=== PATIENT | male | born 1970 | race Caucasian/White ===

== ENCOUNTER 2016-12-31 18:51 | Inpatient (IN) | payer OTHER ==
[~2016-12-31] VITALS: Ht 167.6 cm; Wt 107.4 kg
[2016-12-31] MEDS ORDERED: SODIUM CHLORIDE 0.9% 1000ML 1,000 ML IV STA ×2 (19:51)
[2016-12-31] MEDS ORDERED: GLYB5TAB8 PO (20:17)
[2016-12-31] MEDS ORDERED: CHOL200010 PO (20:17)
[2016-12-31] MEDS ORDERED: METF-384 PO (20:17)
[2016-12-31] MEDS ORDERED: LIRA18IN SQ (20:17)
[2016-12-31] MEDS ORDERED: VALS320T2 PO (20:17)
[2016-12-31] MEDS ORDERED: CYAN10005 PO (20:17)
[2016-12-31] MEDS ORDERED: NVLG SQ (20:17)
[2016-12-31] MEDS ORDERED: NIFE1TAB55 PO (20:17)
[2016-12-31] MEDS ORDERED: INSDGI SC (20:17)
[2016-12-31] MEDS ORDERED: PRLSR20 PO (20:17)
[2016-12-31] MEDS ORDERED: DOXY100C76 PO (20:17)
[2016-12-31 20:33] LABS: HEMATOCRIT 41.2 % (42-52); MEAN CELL VOLUME 83.2 fL (80-100); MEAN CORPUSCULAR HEMOGLOBIN 30.5 pg (25-34); MEAN CORPUSCULAR HGB CONC 36.7 g/dl (32-36); PLATELET COUNT 188 K/uL (130-400); RED BLOOD COUNT 4.95 M/uL (4.7-6.1); WHITE BLOOD COUNT 7.03 K/uL (4.8-10.8)
[2016-12-31 20:53] LABS: ALT/SGPT 150 U/L (12-78); AST/SGOT 44 U/L (15-37); BLOOD UREA NITROGEN 67 mg/dl (7-18); BUN/CREATININE RATIO 33.7 (10-20); CALCIUM 8.3 mg/dl (8.5-10.1); CARBON DIOXIDE 24 mmol/L (21-32); CHLORIDE 108 mmol/L (98-107); GLUCOSE 156 mg/dl (70-99); POTASSIUM 3.3 mmol/L (3.5-5.1); SODIUM 140 mmol/L (136-145)
[2016-12-31 20:56] LABS: ALKALINE PHOSPHATASE 73 U/L (45-117)
--- NOTE | 2016-12-31 20:57 | DIAGNOSTIC IMAGING REPORT ---
CT OF THE ABDOMEN AND PELVIS WITHOUT CONTRAST, STONE PROTOCOL CLINICAL HISTORY: Acute kidney injury. Left flank pain. COMPARISON STUDY: Right upper quadrant ultrasound February 23, 2015. TECHNIQUE: Helical axial images of the abdomen and pelvis were obtained without IV or oral contrast according to renal stone protocol. FINDINGS: Borderline cardiomegaly is noted. There is fatty infiltration of the liver. Unenhanced images of the spleen, right adrenal gland and pancreas are unremarkable. A low-attenuation 1 cm left adrenal nodule likely reflects an adenoma. Note is made of a 3 mm right renal calculus. There are no ureteral calculi. There is no hydronephrosis. Renal size is normal. There is no evidence for a bowel obstruction. The appendix is normal. There is no lymphadenopathy. A few prominent low-attenuation mesenteric lymph nodes are at the upper limits of normal for size. IMPRESSION: 1. 3 mm right renal calculus. No ureteral calculi or hydronephrosis. 2. Normal appendix. 3. Fatty liver. 4. Borderline cardiomegaly. Electronically signed by: Marky Hou M.D. 12/31/2016 8:56 PM Dictated Date/Time: 12/31/2016 8:50 PM
[2016-12-31 21:08] LABS: BASO ABS # 0.06 K/uL (0-0.2); BASOPHIL % 0.9 % (0-2); COMPLETE YES; LYMPH ABS # 1.91 K/uL (1.2-3.4); LYMPHOCYTE % 27.2 %; NEUTROPHILS % 44.7 %; SMUDGE CELLS PRESENT; VARIANT LYMPHOCYTE % 22.8 %
[2016-12-31 22:06] LABS: URINE APPEARANCE CLEAR (CLEAR); URINE BILIRUBIN NEG (NEG); URINE COLOR YELLOW; URINE NITRITE NEG (NEG); URINE SPECIFIC GRAVITY 1.009 (1.000-1.030); UROBILINOGEN NEG (NEG); ZZUR CULT IF INDIC CLEAN CATCH NO
[2016-12-31 22:09] LABS: MANUAL MICROSCOPIC REQUIRED? NO; REVIEW REQ? NO
[2016-12-31] MEDS ORDERED: ALUMINUM/MAGNESIUM/SIMETH (MAALOX MAX) 30 ML UDC PO PRN (23:30)
[2016-12-31] MEDS ORDERED: ZOLPIDEM TARTRATE 5 MG TAB PO PRN (23:30)
[2016-12-31] MEDS ORDERED: ACETAMINOPHEN 325 MG TAB PO PRN (23:30)
[2016-12-31] MEDS ORDERED: MAGNESIUM HYDROXIDE SUSP 30 ML UDC PO PRN (23:30)
[2016-12-31] MEDS ORDERED: POLYETHYLENE (MIRALAX) 17 GM PACK PO PRN (23:30)
[2016-12-31] MEDS ORDERED: ONDANSETRON INJ 2 MG/ML 2 ML VIAL IV PRN (23:30)
[2017-01-01] VITALS: BP 131/82; PULSE 78; TEMP 36.6; Ht 167.6 cm; Wt 107.4 kg
[2017-01-01 00:01] VITALS: O2SAT 95
--- NOTE | 2017-01-01 00:08 | History and Physical ---
History & Physical Date & Time of Service: Dec 31, 2016 at 23:39 Chief Complaint: Needs Fluids For Kidneys Has Problems Primary Care Physician: RV. Youngblood MD History of Present Illness Source: patient, spouse 46 y/o M Hx HTN, DM. Pt has had a GI illness with nausea, vomiting and diarrhea for 6 days. He has not had recent fevers or rigors. He has had intermittent cramping abdomal pain. His stated that she thought he had yellowing of his skin one day prior. He has a child at home who has had similar symptoms. He presented to his PCP who obtained labs and noted that his creatinine was elevated. He was instructed therefore to attend the hospital. Initial labs are also notable for an elevated lipase and elevated LFTs. 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 - speaks Filipino only Smoking Status: Never Smoker Allergies Coded Allergies: No Known Allergies (Unverified , 12/31/16) Home Medications Scheduled Doxycycline Monohydrate (Monodox), 100 MG PO Q12 Glyburide (Micronase), 10 MG PO BID Liraglutide (Victoza), 1.8 MG SQ DAILY Metformin Hcl (Glucophage), 1,000 MG PO BID Nifedipine (Nifedipine Er), 1 TAB PO DAILY Omeprazole (Prilosec), 20 MG PO DAILY Valsartan/Hctz (Diovan Hct 320MG/25MG), 1 TAB PO DAILY Review of Systems Constitutional: No chills, No fever, No sweats Eyes: No eye pain, No worsening of vision ENT: No hearing loss, No nasal symptoms, No unusual epistaxis Respiratory: No cough, No sputum, No wheezing Cardiovascular: No PND, No chest pain, No orthopnea Abdomen: + diarrhea, + nausea, + pain, + vomiting, No GI bleeding Musculoskeletal: No joint pain, No muscle pain Genitourinary - Male: No dysuria, No hematuria, No urinary frequency Neurologic: No memory loss, No paralysis, No weakness Psychiatric: No anhedonism, No depression symptoms Endocrine: + fatigue Hematologic / Lymphatic: No abnormal bleeding/bruising Integumentary: No rash Allergic / Immunologic: No environmental allergies Physical Exam Vital Signs Date Time Temp Pulse Resp B/P Pulse Ox O2 Delivery O2 Flow Rate FiO2 12/31/16 23:00 81 12/31/16 22:57 76 13 122/76 94 Room Air 12/31/16 20:34 78 20 127/77 98 Room Air 12/31/16 18:59 36.6 78 18 127/81 93 Room Air General Appearance: WD/WN, no apparent distress Head: normocephalic, atraumatic Eyes: normal inspection, PERRL, EOMI ENT: normal ENT inspection, hearing grossly normal, TMs normal, pharynx normal Neck: supple, no JVD Respiratory/Chest: chest non-tender, lungs clear, normal breath sounds, no respiratory distress, no accessory muscle use Cardiovascular: regular rate, rhythm, no edema, no gallop Abdomen/GI: normal bowel sounds, soft, + tenderness (Mild L sided abdominal tenderness to palpation) Back: normal inspection, no CVA tenderness Extremities/Musculoskelatal: normal inspection, no calf tenderness, normal capillary refill, no pedal edema, normal range of motion 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, no motor/sensory deficits, alert, normal mood/affect, normal reflexes, oriented x 3 Skin: normal color, warm/dry, no rash Diagnostics Laboratory Results Results Past 24 Hours Test 12/31/16 20:15 12/31/16 21:50 12/31/16 23:28 Range/Units White Blood Count 7.03 4.8-10.8 K/uL Red Blood Count 4.95 4.7-6.1 M/uL Hemoglobin 15.1 14.0-18.0 g/dL Hematocrit 41.2 42-52 % Mean Corpuscular Volume 83.2 80-100 fL Mean Corpuscular Hemoglobin 30.5 25-34 pg Mean Corpuscular Hemoglobin Concent 36.7 32-36 g/dl Platelet Count 188 130-400 K/uL Mean Platelet Volume 10.0 7.4-10.4 fL RDW Standard Deviation 37.2 36.4-46.3 fL RDW Coefficient of Variation 12.3 11.5-14.5 % Neutrophils % (Manual) 44.7 % Lymphocytes % (Manual) 27.2 % Variant Lymphocytes % (manual) 22.8 % Monocytes % (Manual) 4.4 % Basophils % (Manual) 0.9 0-2 % Neutrophils # (Manual) 3.14 1.4-6.5 K/uL Total Absolute Neutrophils 3.14 1.4-6.5 K/uL Lymphocytes # (Manual) 1.91 1.2-3.4 K/uL Absolute Variant Lymphocytes 1.60 K/uL Total Absolute Lymphocytes 3.52 1.2-3.4 K/uL Monocytes # (Manual) 0.31 0.11-0.59 K/uL Basophils # (Manual) 0.06 0-0.2 K/uL Smudge Cells PRESENT Sodium Level 140 136-145 mmol/L Potassium Level 3.3 3.5-5.1 mmol/L Chloride Level 108 98-107 mmol/L Carbon Dioxide Level 24 21-32 mmol/L Anion Gap 8.0 3-11 mmol/L Blood Urea Nitrogen 67 7-18 mg/dl Creatinine 2.00 0.60-1.40 mg/dl Est Creatinine Clear Calc Drug Dose 52.8 ml/min Estimated GFR () 44.4 Estimated GFR (Non- 38.3 BUN/Creatinine Ratio 33.7 10-20 Random Glucose 156 70-99 mg/dl Calcium Level 8.3 8.5-10.1 mg/dl Total Bilirubin 0.4 0.2-1 mg/dl Direct Bilirubin < 0.1 0-0.2 mg/dl Aspartate Amino Transf (AST/SGOT) 44 15-37 U/L Alanine Aminotransferase (ALT/SGPT) 150 12-78 U/L Alkaline Phosphatase 73 45-117 U/L Total Protein 7.6 6.4-8.2 gm/dl Albumin 3.4 3.4-5.0 gm/dl Lipase 898 73-393 U/L Urine Color YELLOW Urine Appearance CLEAR CLEAR Urine pH 5.0 4.5-7.5 Urine Specific [place] 1.009 1.000-1.030 Urine Protein NEG NEG Urine Glucose (UA) NEG NEG Urine Ketones NEG NEG Urine Occult Blood NEG NEG Urine Nitrite NEG NEG Urine Bilirubin NEG NEG Urine Urobilinogen NEG NEG Urine Leukocyte Esterase NEG NEG Diagnostic Radiology .CT abdomen 1. 3 mm right renal calculus. No ureteral calculi or hydronephrosis. 2. Normal appendix. 3. Fatty liver. Impression Assessment and Plan 46 y/o M Hx HTN, DM. Pt has had a GI illness with nausea, vomiting and diarrhea for 6 days. He has not had recent fevers or rigors. He has had intermittent cramping abdomal pain. His stated that she thought he had yellowing of his skin one day prior. He has a child at home who has had similar symptoms. He presented to his PCP who obtained labs and noted that his creatinine was elevated. He was instructed therefore to attend the hospital. Initial labs are also notable for an elevated lipase and elevated LFTs. 1) N/V/D - will obtain stool culture as illness has persisted for 6 days - IVF and antiemetics provided 2) ARF - likely prerenal due to above - IVF - recheck labs AM 3) Elevated lipase - no clinical evidence of pancreatitis - likely due to vomiting 4) LFT elevation - unclear if this is chronic or due to fatty liver (seen on CT ) or acute - will test for hep A - repeat AM - consult GI if increasing 5) DM - placed on SS 6) HTN - Nifedipine continued - diuretics and ALYSHA held due to ARF Full code - Heparin prophylaxis Total time for this admit including review of labs, records, imaging - discussion with pt/ and ER attending - 31 min Level of Care Med/Surg Resuscitation Status FULL RESUSCITATION VTE Prophylaxis VTE Risk Assessment Done? Y/N: Yes Risk Level: Low Given or contraindicated: Unfractionated heparin SQ
[2017-01-01] MEDS ORDERED: MoRPHine SULFATE 2 MG/ML CARP IV PRN (00:15)
[2017-01-01] MEDS: NSS + 20MEQ KCL 1000ML 1,000 ML IV SCH ×5 (00:40→23:52)
--- NOTE | 2017-01-01 01:37 | EMERGENCY ROOM VISIT NOTE ---
History Report prepared by Cory: Niranjan Nair Under the Supervision of: Dr. Beto Edge M.D. First contact with patient: 19:50 Chief Complaint: OTHER COMPLAINT Stated Complaint: NEEDS FLUIDS FOR KIDNEYS HAS PROBLEMS History of Present Illness The patient is a 46 year old male who presents to the Emergency Room with complaints of abnormal labs occurring earlier today. The patient's states that he was at his PCP, and his kidney function was low. The states that the patient had Lyme's disease 6 months ago, and he was given antibiotics for three weeks during the summer. The patient additionally states that he is diabetic and hypertensive. The states that he had a fever, and he was nauseous, vomiting, diarrhea, and abdominal pain. She additionally states that he has lost 10 pounds in the past few days and he intermittently looks a little yellow. The additionally states that his blood sugar has been going up and down a lot recently. The states that the patient's son was sick recently with similar symptoms. Pt denies LOC, headache, chills, diaphoresis, visual changes, neck pain, chest pain, breathing difficulties, back pain, melena, hematochezia, urinary symptoms, numbness, weakness, lymphadenopathy, rash, or other complaints. Source of History: patient, spouse/significant other Onset: earlier today Position: other (global) Quality: other (abnormal labs) Associated Symptoms: + abdominal pain, + diarrhea, + fevers, + nausea, + vomiting Review of Systems See HPI for pertinent positives and negatives. A total of ten systems were reviewed and were otherwise negative. Past Medical & Surgical Medical Problems: (1) ARF (acute renal failure) (2) Diabetes (3) Hypertension (4) Transaminitis Family History Diabetes mellitus Hypertension Social History Smoking Status: Never Smoker Marital Status: Housing Status: lives with family Occupation Status: employed Current/Historical Medications Scheduled Doxycycline Monohydrate (Monodox), 100 MG PO Q12 Glyburide (Micronase), 10 MG PO BID Liraglutide (Victoza), 1.8 MG SQ DAILY Metformin Hcl (Glucophage), 1,000 MG PO BID Nifedipine (Nifedipine Er), 1 TAB PO DAILY Omeprazole (Prilosec), 20 MG PO DAILY Valsartan/Hctz (Diovan Hct 320MG/25MG), 1 TAB PO DAILY Allergies Coded Allergies: No Known Allergies (Unverified , 12/31/16) Physical Exam Vital Signs Date Time Temp Pulse Resp B/P Pulse Ox O2 Delivery O2 Flow Rate FiO2 12/31/16 23:00 81 12/31/16 22:57 76 13 122/76 94 Room Air 12/31/16 20:34 78 20 127/77 98 Room Air 12/31/16 18:59 36.6 78 18 127/81 93 Room Air Physical Exam GENERAL: Awake, alert, well-appearing, in no distress HENT: Normocephalic, atraumatic. Oropharynx unremarkable. EYES: Normal conjunctiva. Sclera non-icteric. NECK: Supple. No nuchal rigidity. FROM. No JVD. RESPIRATORY: Clear to auscultation. CARDIAC: Regular rate, normal rhythm. Extremities warm and well perfused. Pulses equal. ABDOMEN: Soft, non-distended. No tenderness to palpation. No rebound or guarding. No masses. RECTAL: Deferred. MUSCULOSKELETAL: Chest examination reveals no tenderness. The back is symmetrical on inspection without obvious abnormality. There is no CVA tenderness to palpation. No joint edema. LOWER EXTREMITIES: Calves are equal size bilaterally and non-tender. No edema. No discoloration. NEURO: Normal sensorium. No sensory or motor deficits noted. SKIN: No rash or jaundice noted. Medical Decision & Procedures ER Provider Diagnostic Interpretation: Radiology results as stated below per my review and radiologist interpretation CT OF THE ABDOMEN AND PELVIS WITHOUT CONTRAST, STONE PROTOCOL CLINICAL HISTORY: Acute kidney injury. Left flank pain. COMPARISON STUDY: Right upper quadrant ultrasound February 23, 2015. TECHNIQUE: Helical axial images of the abdomen and pelvis were obtained without IV or oral contrast according to renal stone protocol. FINDINGS: Borderline cardiomegaly is noted. There is fatty infiltration of the liver. Unenhanced images of the spleen, right adrenal gland and pancreas are unremarkable. A low-attenuation 1 cm left adrenal nodule likely reflects an adenoma. Note is made of a 3 mm right renal calculus. There are no ureteral calculi. There is no hydronephrosis. Renal size is normal. There is no evidence for a bowel obstruction. The appendix is normal. There is no lymphadenopathy. A few prominent low-attenuation mesenteric lymph nodes are at the upper limits of normal for size. IMPRESSION: 1. 3 mm right renal calculus. No ureteral calculi or hydronephrosis. 2. Normal appendix. 3. Fatty liver. 4. Borderline cardiomegaly. Electronically signed by: Marky Hou M.D. 12/31/2016 8:56 PM Dictated Date/Time: 12/31/2016 8:50 PM Laboratory Results 12/31/16 20:15 Red Blood Count 4.95, Mean Corpuscular Volume 83.2, Mean Corpuscular Hemoglobin 30.5, Mean Corpuscular Hemoglobin Concent 36.7, Mean Platelet Volume 10.0 12/31/16 20:15 Test 12/31/16 20:15 12/31/16 21:50 White Blood Count 7.03 K/uL (4.8-10.8) Red Blood Count 4.95 M/uL (4.7-6.1) Hemoglobin 15.1 g/dL (14.0-18.0) Hematocrit 41.2 % (42-52) Mean Corpuscular Volume 83.2 fL (80-100) Mean Corpuscular Hemoglobin 30.5 pg (25-34) Mean Corpuscular Hemoglobin Concent 36.7 g/dl (32-36) Platelet Count 188 K/uL (130-400) Mean Platelet Volume 10.0 fL (7.4-10.4) RDW Standard Deviation 37.2 fL (36.4-46.3) RDW Coefficient of Variation 12.3 % (11.5-14.5) Neutrophils % (Manual) 44.7 % Lymphocytes % (Manual) 27.2 % Variant Lymphocytes % (manual) 22.8 % Monocytes % (Manual) 4.4 % Basophils % (Manual) 0.9 % (0-2) Neutrophils # (Manual) 3.14 K/uL (1.4-6.5) Total Absolute Neutrophils 3.14 K/uL (1.4-6.5) Lymphocytes # (Manual) 1.91 K/uL (1.2-3.4) Absolute Variant Lymphocytes 1.60 K/uL Total Absolute Lymphocytes 3.52 K/uL (1.2-3.4) Monocytes # (Manual) 0.31 K/uL (0.11-0.59) Basophils # (Manual) 0.06 K/uL (0-0.2) Smudge Cells PRESENT Anion Gap 8.0 mmol/L (3-11) Est Creatinine Clear Calc Drug Dose 52.8 ml/min Estimated GFR () 44.4 Estimated GFR (Non- 38.3 BUN/Creatinine Ratio 33.7 (10-20) Calcium Level 8.3 mg/dl (8.5-10.1) Total Bilirubin 0.4 mg/dl (0.2-1) Direct Bilirubin < 0.1 mg/dl (0-0.2) Aspartate Amino Transf (AST/SGOT) 44 U/L (15-37) Alanine Aminotransferase (ALT/SGPT) 150 U/L (12-78) Alkaline Phosphatase 73 U/L (45-117) Total Protein 7.6 gm/dl (6.4-8.2) Albumin 3.4 gm/dl (3.4-5.0) Lipase 898 U/L (73-393) Hepatitis B Surface Antigen NEG (NEG) Hepatitis C Antibody NEG (NEG) Urine Color YELLOW Urine Appearance CLEAR (CLEAR) Urine pH 5.0 (4.5-7.5) Urine Specific [place] 1.009 (1.000-1.030) Urine Protein NEG (NEG) Urine Glucose (UA) NEG (NEG) Urine Ketones NEG (NEG) Urine Occult Blood NEG (NEG) Urine Nitrite NEG (NEG) Urine Bilirubin NEG (NEG) Urine Urobilinogen NEG (NEG) Urine Leukocyte Esterase NEG (NEG) Laboratory results reviewed by me Medications Administered Medications (Trade) Dose Ordered Sig/Mehul Route Start Time Stop Time Status Last Admin Dose Admin Sodium Chloride 1,000 ml @ 125 mls/hr Q8H STAT IV 12/31/16 19:51 01/01/17 03:50 12/31/16 20:34 125 MLS/HR Sodium Chloride (Nss 1000ml) 1,000 ml @ 999 mls/hr Q1H1M STAT IV 12/31/16 19:51 12/31/16 20:51 DC 12/31/16 20:34 999 MLS/HR ED Course 1950: Sodium Chloride 1000 ml @ 999 mls/hr IV, Sodium Chloride 1000 ml @ 125 mls /hr IV 2105: The patient was evaluated in room A10. A complete history and physical exam was performed. 2123: I discussed the patient's case with Dr. Hernandez. He is going to evaluate the patient for further treatment Medical Decision Triage Nursing notes reviewed. The patient's presentation and history were concerning for possible renal failure. Etiologies such as metabolic, infection, hypo/hyperglycemia, electrolyte abnormalities, cardiac sources, intracerebral event, toxicologic, neurologic, as well as others were entertained. The patient was evaluated. He had some vomiting and diarrhea over the last several days. His creatinine was elevated concerning for acute kidney injury. He also had a mild elevation of LFTs and lipase. The patient had an unremarkable CT scan as noted above. He was hydrated with normal saline. The patient had a benign abdomen. Further evaluation and management in the hospital will be necessary. Consultation was made with internal medicine. The patient was evaluated in the Emergency Room for further treatment. The chart was completed utilizing [employer] Speech voice recognition software. Grammatical errors, random word insertions, pronoun errors, and incomplete sentences are an occasional consequence of this system due to software limitations, ambient noise, and hardware issues. Any formal questions or concerns about the content, text, or information contained within the body of this dictation should be directly addressed to the physician for clarification. Consults Time Called: 2114 Consulting Physician: Dr. Hernandez Returned Call: 2123 I discussed the patient's case with Dr. Hernandez. He is going to evaluate the patient for further treatment Impression Primary Impression: Acute kidney injury Additional Impressions: Elevated LFTs Pancreatitis Scribe Attestation The scribe's documentation has been prepared under my direction and personally reviewed by me in its entirety. I confirm that the note above accurately reflects all work, treatment, procedures, and medical decision making performed by me. Departure Information Dispostion Being Evaluated By Hospitalist Referrals RV. Youngblood MD (PCP) Problem Qualifiers
[2017-01-01] MEDS ORDERED: GLUCOSE 10 TABS/TUBE PO PRN (05:00)
[2017-01-01] MEDS ORDERED: GLUCAGON FOR INJ 1 MG VIAL SQ PRN (05:00)
[2017-01-01] MEDS ORDERED: DEXTROSE 50% 50 ML SYR IV PRN (05:00)
[2017-01-01] MEDS ORDERED: INSULIN ASPART 100 UNITS/ML 3 ML PEN SC SCH (05:00)
[2017-01-01] MEDS ORDERED: GLUCOSE 40% GEL 15 GM TUBE PO PRN (05:00)
[2017-01-01 06:56] LABS: MEAN CELL VOLUME 85.6 fL (80-100); MEAN CORPUSCULAR HEMOGLOBIN 30.4 pg (25-34); MEAN CORPUSCULAR HGB CONC 35.5 g/dl (32-36); MEAN PLATELET VOLUME 10.2 fL (7.4-10.4); PLATELET COUNT 163 K/uL (130-400); RED BLOOD COUNT 4.44 M/uL (4.7-6.1); WHITE BLOOD COUNT 6.69 K/uL (4.8-10.8)
[2017-01-01 07:04] LABS: PARTIAL THROMBOPLASTIN RATIO 1.1; PROTHROMBIN TIME (PATIENT) 10.6 SECONDS (9.0-12.0)
[2017-01-01 07:21] LABS: BUN/CREATININE RATIO 33.6 (10-20); CALCIUM 8.3 mg/dl (8.5-10.1); CREATININE 1.4 mg/dl (0.60-1.40); MAGNESIUM 2.1 mg/dl (1.8-2.4); POTASSIUM 3.3 mmol/L (3.5-5.1)
[2017-01-01 07:25] LABS: PHOSPHORUS 2.1 mg/dl (2.5-4.9)
[2017-01-01 07:30] VITALS: BP 134/74; PULSE 84; TEMP 36.6; O2SAT 94
[2017-01-01] MEDS: NIFEdipine 30 MG CR TAB PO SCH (08:05)
[2017-01-01] MEDS: PANTOprazole SOD 40 MG TAB PO SCH (08:06)
[2017-01-01] MEDS: HEPARIN SOD 5000 UNIT/0.5 ML CARP SQ SCH ×3 (08:08→22:26)
[2017-01-01] MEDS ORDERED: POTASSIUM CHLORIDE 10 MEQ TABCR PO STA (09:37)
[2017-01-01] MEDS ORDERED: NURSING VERBAL MED ORDER ONE ×3 (10:30→11:15)
--- NOTE | 2017-01-01 11:00 | DIAGNOSTIC IMAGING REPORT ---
ULTRASOUND RIGHT UPPER QUADRANT ABDOMEN CLINICAL HISTORY: Epigastric abdominal pain. COMPARISON STUDY: Abdominal CT dated 12/31/2016. TECHNIQUE: Real-time, grayscale, and color flow sonography of the right upper quadrant of the abdomen was performed. Images are reviewed in the transverse and longitudinal planes. FINDINGS: Liver: The liver is top normal in size and demonstrates heterogeneously increased echotexture consistent with severe hepatic steatosis. Note that this degrades acoustic penetration of the liver. There is no intrahepatic biliary ductal dilatation. The main portal vein is patent. Gallbladder: The gallbladder is normal in appearance. No gallstones are identified. There is no gallbladder wall thickening or pericholecystic fluid. A sonographic Rodríguez's sign is reportedly absent. The common bile duct measures up to 0.5 cm in diameter. Pancreas: Visualized portions of the pancreatic head and body are normal in appearance. Right kidney: Survey images of the right kidney demonstrate normal size and echotexture. There is no hydronephrosis. Ascites: None. IMPRESSION: 1. No acute sonographic abnormality is identified. No gallstones are seen. 2. Severe hepatic steatosis. Electronically signed by: Matti Garsia M.D. 01/01/2017 10:58 AM Dictated Date/Time: 01/01/2017 10:57 AM
[2017-01-01 11:42] LABS: CHOLESTEROL/HDL RATIO 4.5
--- NOTE | 2017-01-01 14:43 | Progress Note ---
Subjective Date of Service: Jan 01, 2017. Subjective Pt evaluation today including: conversation w/ patient, physical exam, chart review, lab review, review of studies, conversation w/ it infrastructure consultant, review of inpatient medication list Voiding: no voiding problems, no incontinence Feeling tired, feeling hungry, no more nausea vomiting, and abdominal pain, Problem List Medical Problems: (1) Acute kidney injury Status: Acute (2) Elevated LFTs Status: Acute (3) Pancreatitis Status: Acute Review of Systems Constitutional: No chills, No fatigue, No fever, No problem reported, No sweats , No weakness, No weight loss Eyes: No diplopia, No discharge, No eye pain, No redness, No worsening of vision ENT: No dental problems, No hearing loss, No nasal symptoms, No sore throat, No tinnitus, No trouble swallowing, No unusual epistaxis Respiratory: No cough, No dyspnea at rest, No dyspnea on exertion, No hemoptysis, No shortness of breath, No sputum, No wheezing Cardiac: No PND, No chest pain, No claudication, No edema, No orthopnea, No palpitations Abdomen: No constipation, No diarrhea, No nausea, No pain, No vomiting Musculoskeletal: No calf pain, No joint pain, No muscle pain, No swelling Male : No dysuria, No hematuria, No incontinence, No nocturia more than once/ night, No slowing stream, No urinary frequency Neurologic: No balance problems, No memory loss, No numbness/tingling, No paralysis, No vertigo, No weakness Psychiatric: No anhedonism, No anxiety, No depression symptoms, No insomnia, No substance abuse Heme: No abnormal bleeding/bruising, No clotting problems, No night sweats, No swollen lymph nodes Endo: No excessive thirst, No excessive urination, No fatigue Skin: No bleeding, No color change, No itch, No new/changing skin lesions, No rash Objective Vital Signs Date Time Temp Pulse Resp B/P Pulse Ox O2 Delivery O2 Flow Rate FiO2 01/01/17 08:00 Room Air 01/01/17 07:30 36.6 84 18 134/74 94 Room Air 01/01/17 00:01 36.6 73 15 121/78 95 01/01/17 00:00 36.6 78 18 131/82 Room Air 12/31/16 23:00 81 12/31/16 22:57 76 13 122/76 94 Room Air 12/31/16 20:34 78 20 127/77 98 Room Air 12/31/16 18:59 36.6 78 18 127/81 93 Room Air Physical Exam General Appearance: WD/WN, no apparent distress, + obese Eyes: normal inspection, PERRL, EOMI, sclerae normal ENT: normal ENT inspection, hearing grossly normal, pharynx normal Neck: supple, no adenopathy, thyroid normal, no JVD, no carotid bruits, trachea midline Respiratory/Chest: chest non-tender, lungs clear, normal breath sounds, no respiratory distress, no accessory muscle use Cardiovascular: regular rate, rhythm, no edema, no gallop, no JVD, no murmur Abdomen: normal bowel sounds, non tender, soft, no organomegaly, no pulsatile mass Extremities: normal range of motion, non-tender, normal inspection, no pedal edema, no calf tenderness, normal capillary refill, pelvis stable Neurologic/Psychiatric: 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, no motor/sensory deficits, alert, normal mood/affect, oriented x 3 Skin: normal color, warm/dry, no rash Lymphatic: no adenopathy Laboratory Results Last 24 Hours Test 12/31/16 20:15 12/31/16 21:50 01/01/17 05:06 01/01/17 06:17 White Blood Count 7.03 K/uL 6.69 K/uL Red Blood Count 4.95 M/uL 4.44 M/uL Hemoglobin 15.1 g/dL 13.5 g/dL Hematocrit 41.2 % 38.0 % Mean Corpuscular Volume 83.2 fL 85.6 fL Mean Corpuscular Hemoglobin 30.5 pg 30.4 pg Mean Corpuscular Hemoglobin Concent 36.7 g/dl 35.5 g/dl Platelet Count 188 K/uL 163 K/uL Mean Platelet Volume 10.0 fL 10.2 fL RDW Standard Deviation 37.2 fL 39.4 fL RDW Coefficient of Variation 12.3 % 12.6 % Neutrophils % (Manual) 44.7 % Lymphocytes % (Manual) 27.2 % Variant Lymphocytes % (manual) 22.8 % Monocytes % (Manual) 4.4 % Basophils % (Manual) 0.9 % Neutrophils # (Manual) 3.14 K/uL Total Absolute Neutrophils 3.14 K/uL Lymphocytes # (Manual) 1.91 K/uL Absolute Variant Lymphocytes 1.60 K/uL Total Absolute Lymphocytes 3.52 K/uL Monocytes # (Manual) 0.31 K/uL Basophils # (Manual) 0.06 K/uL Smudge Cells PRESENT Sodium Level 140 mmol/L 145 mmol/L Potassium Level 3.3 mmol/L 3.3 mmol/L Chloride Level 108 mmol/L 112 mmol/L Carbon Dioxide Level 24 mmol/L 26 mmol/L Anion Gap 8.0 mmol/L 7.0 mmol/L Blood Urea Nitrogen 67 mg/dl 47 mg/dl Creatinine 2.00 mg/dl 1.40 mg/dl Est Creatinine Clear Calc Drug Dose 52.8 ml/min 74.1 ml/min Estimated GFR () 44.4 68.4 Estimated GFR (Non- 38.3 59.0 BUN/Creatinine Ratio 33.7 33.6 Random Glucose 156 mg/dl 111 mg/dl Calcium Level 8.3 mg/dl 8.3 mg/dl Total Bilirubin 0.4 mg/dl 0.4 mg/dl Direct Bilirubin < 0.1 mg/dl 0.1 mg/dl Aspartate Amino Transf (AST/SGOT) 44 U/L 46 U/L Alanine Aminotransferase (ALT/SGPT) 150 U/L 127 U/L Alkaline Phosphatase 73 U/L 63 U/L Total Protein 7.6 gm/dl 6.5 gm/dl Albumin 3.4 gm/dl 3.2 gm/dl Lipase 898 U/L 955 U/L Hepatitis B Surface Antigen NEG Hepatitis C Antibody NEG Urine Color YELLOW Urine Appearance CLEAR Urine pH 5.0 Urine Specific [place] 1.009 Urine Protein NEG Urine Glucose (UA) NEG Urine Ketones NEG Urine Occult Blood NEG Urine Nitrite NEG Urine Bilirubin NEG Urine Urobilinogen NEG Urine Leukocyte Esterase NEG Bedside Glucose 95 mg/dl Prothrombin Time 10.6 SECONDS Prothromb Time International Ratio 1.0 Activated Partial Thromboplast Time 27.8 SECONDS Partial Thromboplastin Ratio 1.1 Phosphorus Level 2.1 mg/dl Magnesium Level 2.1 mg/dl Test 01/01/17 11:02 01/01/17 11:07 Triglycerides Level 171 mg/dl Cholesterol Level 85 mg/dl HDL Cholesterol 19 mg/dl LDL Cholesterol, Calculated 32 mg/dl VLDL Cholesterol, Calculated 34 mg/dl Cholesterol/HDL Ratio 4.5 Bedside Glucose 115 mg/dl Assessment and Plan 46 y/o M admitted on 12/31/2016 because of GI illness with nausea, vomiting and diarrhea for 6 days. He has had intermittent cramping abdomal pain. His stated that she thought he had yellowing of his skin one day prior. a child at home who has had similar symptoms. He presented to his PCP who obtained labs and noted that his creatinine was elevated. He was instructed therefore to attend the hospital. Initial labs are also notable for an elevated lipase and elevated LFTs. possible gastritis with N/V/D Possible virus, However differential diagnosis include cholecystitis, gastritis, or pancreatitis ARF acute renal failure, improving after IV fluid - likely prerenal due to above continue follow-up Elevated lipase, likely from dehydration from poor oral intake, no clinical evidence of pancreatitis , right upper quadrant ultrasound has no gallbladder stone all CBD dilatation, patient did not alcohol abuse disorder, LFT elevation - unclear if this is chronic or due to fatty liver (seen on CT) or acute Fatty liver, counseling about healthy diet and follow-up with PCP testing for hep A Right upper quadrant ultrasound is unremarkable said affect his liver consult GI if increasing DM continue on SS, check HbA1c HTN - Nifedipine continued Full code - Heparin prophylaxis Discussed with patient about a care plan, I do not feel need to GI consult now, Continue with diet, advance as tolerated, up and walk, Continued [facility] stay due to: multiple IV medications needed Discharge planning: home
[2017-01-01 15:13] VITALS: BP 134/78; PULSE 82; TEMP 37; O2SAT 95
[2017-01-01] MEDS: INSULIN ASPART 100 UNITS/ML 3 ML PEN SC SCH ×2 (18:07→22:25)
[2017-01-02 00:02] VITALS: BP 146/82; PULSE 80; TEMP 37.1; O2SAT 96
[2017-01-02] MEDS: HEPARIN SOD 5000 UNIT/0.5 ML CARP SQ SCH (05:37)
[2017-01-02] MEDS: INSULIN ASPART 100 UNITS/ML 3 ML PEN SC SCH (06:30)
[2017-01-02] MEDS: NSS + 20MEQ KCL 1000ML 1,000 ML IV SCH (07:31)
[2017-01-02] MEDS: PANTOprazole SOD 40 MG TAB PO SCH (07:32)
[2017-01-02] MEDS: NIFEdipine 30 MG CR TAB PO SCH (07:32)
[2017-01-02 07:42] VITALS: BP 139/83; PULSE 74; TEMP 37; O2SAT 96
[2017-01-02 08:39] LABS: CALCIUM 8.1 mg/dl (8.5-10.1); CREATININE 0.86 mg/dl (0.60-1.40); MAGNESIUM 1.7 mg/dl (1.8-2.4); POTASSIUM 3.5 mmol/L (3.5-5.1)
[2017-01-02] MEDS ORDERED: MAGNESIUM OXIDE 400 MG TAB PO STA (08:51)
[2017-01-02] MEDS ORDERED: MGNO400 PO (09:39)
[2017-01-02 09:46] VITALS: BP 139/83; PULSE 74; TEMP 37; O2SAT 96
--- NOTE | 2017-01-02 10:01 | Discharge Instructions ---
Discharge Instructions Date of Service Jan 02, 2017. Admission Reason for Admission: Arf, Transaminitis Discharge Discharge Diagnosis / Problem: vitus gastritis Discharge Goals Goal(s): Decrease discomfort, Improve function, Increase independence, Improve disease control, Improve nutritional status, Learn about illness, Diagnostic testing, Therapeutic intervention, Prevent Disease Progression, Specific goals Activity Recommendations Activity Limitations: resume your previous activity . Instructions / Follow-Up Instructions / Follow-Up You have nausea, vomiting and diarrhea prior to admission, possible virus gastritis You have acute kidney failure, likely because of not eating drinking well and dehydration, which is totally resolved after IV infusion you are having elevated lipase, likely from dehydration from poor oral intake, no clinical evidence of pancreatitis , right upper quadrant ultrasound has no gallbladder stone or CBD dilatation You have elevated possible from fatty liver Fatty liver, counseling about healthy diet and follow-up with PCP You have diabetic, okay to continue your medication at home - you need to follow up with your primary care physician in 1 week, - take medication as instructed, never overdose or any misuse, or take with alcohol, because misuse of medicine may cause organ damage or , call your primary care physician if have questions of medicaitons. - call your primary care physician OR go to local emergency room if has any fever/chill, chest pain, shortness of breathing, nausea/vomiting/abdominal pain , facial droop/slurry speech/local weakness, or if has any questions. - fall precaution - diet as instructed - you need to follow up with your subspecialist - you should understand that it is important to follow up the above instruction , and "not following the above instruction" may cause delayed or missed care of your medical conditions which may cause permanent organ damage and even . Current Hospital Diet Patient's current hospital diet: Diabetes Type 2 Diet Discharge Diet Recommended Diet: Diabetes Type 2 Diet Procedures Procedures Performed: Right upper quadrant ultrasound Pending Studies Studies pending at discharge: no Laboratory Results Meds Administered (Past 24Hrs) Medications (Trade) Dose Ordered Sig/Mehul Route Start Time Stop Time Status Last Admin Dose Admin Sodium Chloride 1,000 ml @ 125 mls/hr Q8H STAT IV 12/31/16 19:51 01/01/17 03:50 DC 12/31/16 20:34 125 MLS/HR Sodium Chloride (Nss 1000ml) 1,000 ml @ 999 mls/hr Q1H1M STAT IV 12/31/16 19:51 12/31/16 20:51 DC 12/31/16 20:34 999 MLS/HR Nifedipine (Procardia Xl Tab) 60 mg DAILY PO 01/01/17 08:00 01/31/17 08:59 01/02/17 07:32 60 MG Pantoprazole Sodium (Protonix Tab) 40 mg DAILY PO 01/01/17 08:00 01/31/17 08:59 01/02/17 07:32 40 MG Heparin Sodium (Porcine) 5000 unit 5,000 unit Q8 SQ 01/01/17 06:00 01/31/17 05:59 01/02/17 05:37 5,000 UNIT Potassium Chloride/Sodium Chloride (Nss + 20meq KCl 1000ml) 1,000 ml @ 200 mls/hr Q5H IV 01/01/17 00:30 01/01/17 10:29 DC 01/01/17 05:08 200 MLS/HR Potassium Chloride 20 meq 20 meq NOW STAT PO 01/01/17 09:37 01/01/17 09:42 DC 01/01/17 10:08 20 MEQ Potassium Chloride/Sodium Chloride (Nss + 20meq KCl 1000ml) 1,000 ml @ 150 mls/hr Q6H40M IV 01/01/17 11:00 01/02/17 08:53 DC 01/02/17 07:31 150 MLS/HR Insulin Aspart (novoLOG ASPART) SLIDING SCALE G... ACHS SC 01/01/17 16:30 01/31/17 16:29 01/01/17 22:25 1 UNITS Magnesium Oxide (Mag-Ox Tab) 400 mg NOW STAT PO 01/02/17 08:51 01/02/17 08:57 DC 01/02/17 09:40 400 MG Hemoglobin A1c Test 10/31/16 15:29 Range/Units Estimated Average Glucose 157 mg/dl Hemoglobin A1c 7.1 H 4.5-5.6 % Lipid Panel Test 01/01/17 11:02 Range/Units Triglycerides Level 171 H 0-150 mg/dl Cholesterol Level 85 0-200 mg/dl HDL Cholesterol 19 mg/dl Cholesterol/HDL Ratio 4.5 LDL Cholesterol, Calculated 32 mg/dl Medical Emergencies . Who to Call and When: Medical Emergencies: If at any time you feel your situation is an emergency, please call 911 immediately. . Non-Emergent Contact Non-Emergency issues call your: Primary Care Provider . . "Provider Documentation" section prepared by Almas Anna. VTE Core Measure Inpt VTE Proph given/why not?: Unfractionated heparin SQ
--- NOTE | 2017-01-02 10:08 | Discharge Summary ---
Discharge Summary Date of Service Jan 02, 2017. Discharge Summary Admission Date: Dec 31, 2016 at 23:32 Discharge Date: Jan 02, 2017 Principal Diagnosis: virus gastritis Problems/Secondary Diagnoses: Acute kidney failure Borderline control diabetic type II with A1c 7.1 Procedures: Right upper quadrant ultrasound studies, Consultations: No Medication Reconciliation New Medications: Magnesium Oxide (Magnesium-Oxide) 400 Mg Tab 400 MG PO BID for 7 Days, TAB Continued Medications: Doxycycline Monohydrate (Monodox) 100 Mg Cap 100 MG PO Q12, CAP Glyburide (Micronase) 5 Mg Tab 10 MG PO BID, TAB Liraglutide (Victoza) 18 Mg/3 Ml Inj 1.8 MG SQ DAILY Metformin Hcl (Glucophage) 1,000 Mg Tab 1000 MG PO BID, TAB Nifedipine (Nifedipine Er) 60 Mg Tab 1 TAB PO DAILY for 90 Days Omeprazole (Prilosec) 20 Mg Capcr 20 MG PO DAILY, CAP Valsartan/Hctz (Diovan Hct 320MG/25MG) 1 Tab Tab 1 TAB PO DAILY, TAB Discharge Exam Doing well, no more nausea vomiting, tolerate diet, has up and walk, no constipation Review of Systems: Constitutional: No chills, No fatigue, No fever, No problem reported, No sweats, No weakness, No weight loss Eyes: No diplopia, No discharge, No eye pain, No problem reported, No redness, No worsening of vision ENT: No dental problems, No hearing loss, No nasal symptoms, No problem reported, No sore throat, No tinnitus, No trouble swallowing, No unusual epistaxis Respiratory: No cough, No dyspnea at rest, No dyspnea on exertion, No hemoptysis, No problem reported, No shortness of breath, No sputum, No wheezing Cardiovascular: No PND, No chest pain, No claudication, No edema, No orthopnea, No palpitations, No problem reported Abdomen: No GI bleeding, No constipation, No diarrhea, No nausea, No pain, No problem reported, No vomiting Musculoskeletal: No calf pain, No joint pain, No muscle pain, No problem reported, No swelling Genitourinary - Male: No dysuria, No hematuria, No impotence, No lesions, No penile discharge, No problem reported, No urinary frequency, No urinary hesitancy, No urinary incontinence, No urinary retention, No urinary urgency Neurologic: No balance problems, No memory loss, No numbness/tingling, No paralysis, No problem reported, No vertigo, No weakness Psychiatric: No anhedonism, No anxiety, No depression symptoms, No insomnia , No problem reported, No substance abuse Endocrine: No excessive thirst, No excessive urination, No fatigue, No problem reported Hematologic / Lymphatic: No abnormal bleeding/bruising, No clotting problems , No night sweats, No problem reported, No swollen lymph nodes Integumentary: No bleeding, No color change, No itch, No new/changing skin lesions, No problem reported, No rash Physical Exam: General Appearance: WD/WN, no apparent distress Eyes: normal inspection, PERRL, EOMI ENT: normal ENT inspection, hearing grossly normal, TMs normal Neck: supple, no adenopathy, thyroid normal Respiratory/Chest: chest non-tender, normal breath sounds, no accessory muscle use, + decreased breath sounds Cardiovascular: regular rate, rhythm, no edema, no gallop, no JVD, no murmur Abdomen / GI: normal bowel sounds, non tender, soft, no organomegaly Extremities: normal inspection, no calf tenderness, normal capillary refill , no pedal edema, normal range of motion 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 He has had intermittent cramping abdominal pain. His stated that she thought he had yellowing of his skin one day prior. When he was a child at home who has had similar symptoms. He presented to his PCP who obtained labs and noted that his creatinine was elevated. He was instructed therefore to attend the hospital. Initial labs are also notable for an elevated lipase and elevated LFTs. possible gastritis with N/V/D , totally resolved Possible virus, However differential diagnosis include cholecystitis, gastritis, or pancreatitis ARF acute renal failure, improving after IV fluid - likely prerenal due to dehydration Elevated lipase, likely from dehydration from poor oral intake, no clinical evidence of pancreatitis , right upper quadrant ultrasound has no gallbladder stone all CBD dilatation, patient did not alcohol abuse disorder, LFT elevation - unclear if this is chronic or due to fatty liver (seen on CT) or acute Fatty liver, counseling about healthy diet and follow-up with PCP testing for hepatitis panel were unremarkable Right upper quadrant ultrasound is unremarkable except fatty liver No need to consult GI, but referral to GI if needed per primary care physician Borderline controlled DM with A1c 7.1, was on SS, can resume home diabetic medication because of her renal function totally resolved HTN - Nifedipine continued Full code - Heparin prophylaxis Discussed with patient about a care plan, Continue with diet, advance as tolerated, up and walk, Discharge instruction You have nausea, vomiting and diarrhea prior to admission, possible virus gastritis You have acute kidney failure, likely because of not eating drinking well and dehydration, which is totally resolved after IV infusion you are having elevated lipase, likely from dehydration from poor oral intake, no clinical evidence of pancreatitis , right upper quadrant ultrasound has no gallbladder stone or CBD dilatation You have elevated possible from fatty liver Fatty liver, counseling about healthy diet and follow-up with PCP You have diabetic, okay to continue your medication at home - you need to follow up with your primary care physician in 1 week, - take medication as instructed, never overdose or any misuse, or take with alcohol, because misuse of medicine may cause organ damage or , call your primary care physician if have questions of medicaitons. - call your primary care physician OR go to local emergency room if has any fever/chill, chest pain, shortness of breathing, nausea/vomiting/abdominal pain , facial droop/slurry speech/local weakness, or if has any questions. - fall precaution - diet as instructed - you need to follow up with your subspecialist - you should understand that it is important to follow up the above instruction , and "not following the above instruction" may cause delayed or missed care of your medical conditions which may cause permanent organ damage and even . Total Time Spent: Greater than 30 minutes This includes examination of the patient, discharge planning, medication reconciliation, and communication with other providers. Discharge Instructions Please refer to the electronic Patient Visit Report (Discharge Instructions) for additional information. Additional Copies To RV. Youngblood MD
[2017-01-02] MEDS ORDERED: MAGNESIUM OXIDE 400 MG TAB PO SCH (20:00)
== END 2017-01-02 10:30 | disposition home or self-care (01) | DRG 392 ==
LOC: ENRESERVDT → ENRESERVTM → C.EDB 18:57 → C.MS4W 23:32
PROVIDERS: ADMIT Internal Medicine; ATTEND Hospitalist
DX: A08.4 Viral intestinal infection, unspecified (principal); N17.9 Acute kidney failure, unspecified; K29.70 Gastritis, unspecified, without bleeding; E66.9 Obesity, unspecified; E11.9 Type 2 diabetes mellitus without complications; E86.0 Dehydration; K76.0 Fatty (change of) liver, not elsewhere classified; I10 Essential (primary) hypertension; R74.8 Abnormal levels of other serum enzymes; R94.5 Abnormal results of liver function studies; R74.0 Nonspecific elevation of levels of transaminase and lactic acid dehydrogenase [LDH]; Z79.899 Other long term (current) drug therapy; Z68.38 Body mass index [BMI] 38.0-38.9, adult; Z86.19 Personal history of other infectious and parasitic diseases; Z79.84 Long term (current) use of oral hypoglycemic drugs; Z79.02 Long term (current) use of antithrombotics/antiplatelets

== ENCOUNTER → 2016-12-31 | Outpatient (CLI) | payer OTHER ==
[~2016-12-31] MED LIST: CHOL200010 PO; CYAN10005 PO; DOXY100C76 PO; GLYB5TAB8 PO; INSDGI SC; LIRA18IN SQ; METF-384 PO; MGNO400 PO; NIFE1TAB55 PO; NVLG SQ; PRLSR20 PO; VALS320T2 PO
[2016-12-31 15:34] LABS: HEMATOCRIT 43.3 % (42-52); MEAN CELL VOLUME 83.8 fL (80-100); MEAN CORPUSCULAR HGB CONC 35.8 g/dl (32-36); MEAN PLATELET VOLUME 10.4 fL (7.4-10.4); PLATELET COUNT 212 K/uL (130-400); RED BLOOD COUNT 5.17 M/uL (4.7-6.1); WHITE BLOOD COUNT 7.27 K/uL (4.8-10.8)
[2016-12-31 15:35] LABS: URINE APPEARANCE CLEAR (CLEAR); URINE BILIRUBIN NEG (NEG); URINE COLOR YELLOW; URINE EPITHELIAL CELL AUTO 20-30 /lpf (0-5); URINE NITRITE NEG (NEG); URINE PH 5.5 (4.5-7.5); URINE SPECIFIC GRAVITY 1.021 (1.000-1.030); UROBILINOGEN NEG (NEG); ZZUR CULT IF INDIC CLEAN CATCH NO
[2016-12-31 15:38] LABS: MANUAL MICROSCOPIC REQUIRED? NO; REVIEW REQ? YES
[2016-12-31 15:50] LABS: URINE PATH CASTS 0-3 WBC CASTS /lpf (0)
[2016-12-31 16:14] LABS: ALT/SGPT 158 U/L (12-78); AST/SGOT 51 U/L (15-37); BLOOD UREA NITROGEN 72 mg/dl (7-18); BUN/CREATININE RATIO 32.7 (10-20); CALCIUM 8.2 mg/dl (8.5-10.1); CARBON DIOXIDE 26 mmol/L (21-32); CHLORIDE 108 mmol/L (98-107); GLUCOSE 80 mg/dl (70-99); POTASSIUM 3.1 mmol/L (3.5-5.1); SODIUM 142 mmol/L (136-145)
[2016-12-31 16:16] LABS: ALB/GLOB RATIO 0.9 (0.9-2); ALKALINE PHOSPHATASE 75 U/L (45-117)
[2016-12-31 16:43] LABS: COMPLETE YES; LYMPH ABS # 2.18 K/uL (1.2-3.4); SMUDGE CELLS PRESENT
[2016-12-31 16:47] LABS: LYME DISEASE AB IGG POS (NEG); LYME DISEASE AB IGM EQUIVOCAL (NEG)
[2017-01-06 05:33] LABS: 18KDIGG BAND REACTIVE (NONREACTIVE); 23KDIGG BAND REACTIVE (NONREACTIVE); 23KDIGM BAND REACTIVE (NONREACTIVE); 28KDIGG BAND NONREACTIVE (NONREACTIVE); 30KDIGG BAND NONREACTIVE (NONREACTIVE); 39KDIGG BAND REACTIVE (NONREACTIVE); 39KDIGM BAND NONREACTIVE (NONREACTIVE); 41KDIGG BAND REACTIVE (NONREACTIVE); 41KDIGM BAND REACTIVE (NONREACTIVE); 45KDIGG BAND REACTIVE (NONREACTIVE); 58KDIGG BAND REACTIVE (NONREACTIVE); 66KDIGG BAND REACTIVE (NONREACTIVE); 93KDIGG BAND NONREACTIVE (NONREACTIVE)
== END | disposition home or self-care (01) ==
LOC: C.LAB1850 14:26
PROVIDERS: ATTEND Nurse Practitioner Adult Health
DX: K76.0 Fatty (change of) liver, not elsewhere classified (principal); R10.12 Left upper quadrant pain; Z23 Encounter for immunization; T14.8 Other injury of unspecified body region; W57.XXXA Bitten or stung by nonvenomous insect and other nonvenomous arthropods, initial encounter

== ENCOUNTER → 2017-01-16 | Outpatient (CLI) | payer OTHER ==
[~2017-01-16] VITALS: Ht 175.3 cm; Wt 111.2 kg
[~2017-01-16] MED LIST changes: -CHOL200010 PO; -CYAN10005 PO; -INSDGI SC; -NVLG SQ
[2017-01-16 15:35] VITALS: BP 143/91; PULSE 79; Ht 175.3 cm; Wt 111.2 kg
== END | disposition home or self-care (01) ==
LOC: C.NEUR 14:56
PROVIDERS: ATTEND Internal Medicine Pulmonary Disease
DX: G47.9 Sleep disorder, unspecified (principal); R06.83 Snoring; R53.83 Other fatigue; R40.0 Somnolence

== ENCOUNTER → 2017-12-05 | Outpatient (CLI) | payer OTHER ==
[~2017-12-05] MED LIST changes: -NIFE1TAB55 PO; +NIFE60TA66 PO
[2017-12-05 10:22] LABS: BASO % 0.3 %; BASO ABS # 0.02 K/uL (0-0.2); EOS % 1.9 %; EOS ABS # 0.12 K/uL (0-0.5); HEMATOCRIT 45.1 % (42-52); HEMOGLOBIN 15.7 g/dL (14.0-18.0); IG# 0.01 K/uL (0.00-0.02); LYMPH % 32.8 %; LYMPH ABS # 2.09 K/uL (1.2-3.4); MEAN CELL VOLUME 87.9 fL (80-100); MEAN CORPUSCULAR HEMOGLOBIN 30.6 pg (25-34); MEAN CORPUSCULAR HGB CONC 34.8 g/dl (32-36); MEAN PLATELET VOLUME 10.5 fL (7.4-10.4); MONO % 10.5 %; MONO ABS # 0.67 K/uL (0.11-0.59); NEUT % 54.3 %; NEUT ABS # 3.47 K/uL (1.4-6.5); PLATELET COUNT 179 K/uL (130-400); RED CELL DISTRIBUTION WIDTH CV 12.1 % (11.5-14.5); RED CELL DISTRIBUTION WIDTH SD 38.7 fL (36.4-46.3); WHITE BLOOD COUNT 6.38 K/uL (4.8-10.8)
[2017-12-05 10:38] LABS: ALBUMIN 3.6 gm/dl (3.4-5.0); ALT/SGPT 100 U/L (12-78); AST/SGOT 49 U/L (15-37); BLOOD UREA NITROGEN 11 mg/dl (7-18); CALCIUM 8.5 mg/dl (8.5-10.1); CARBON DIOXIDE 32 mmol/L (21-32); CHOLESTEROL 133 mg/dl (0-200); CREATININE 0.94 mg/dl (0.60-1.40); GLUCOSE 250 mg/dl (70-99); POTASSIUM 3.5 mmol/L (3.5-5.1); SODIUM 140 mmol/L (136-145); TOTAL PROTEIN 7.9 gm/dl (6.4-8.2)
[2017-12-05 10:44] LABS: ALKALINE PHOSPHATASE 94 U/L (45-117); LDL CHOLESTEROL CALCULATED 58 mg/dl
[2017-12-05 11:18] LABS: HEMOGLOBIN A1C 8.3 % (4.5-5.6)
== END | disposition home or self-care (01) ==
LOC: C.LAB1850 08:48
PROVIDERS: ATTEND Internal Medicine
DX: E11.9 Type 2 diabetes mellitus without complications (principal); I10 Essential (primary) hypertension

== ENCOUNTER → 2017-12-22 | Outpatient (CLI) | payer OTHER ==
--- NOTE | 2017-12-23 05:53 | PAP/PSG TECHNICIAN REPORT ---
[facility] Shroudman Polysomnogram Report Study name: None Report date: 12/23/2017 Study date: 12/22/2017 Referring Physician: Beto Nascimento M.D. Name: TRIXIE BLACK I Interpreting Physician: Beto Nascimento M.D. Date of : 1970 Sh[place]: Elizabeth Dawkins RPSGT. Sex: Male Age: 47 StudyType: PSG Weight: 245 lbs Height: 47 years, Height 5' 9" Neck Circum: 18.5 inches BMI: 36.18 Medications: Omeprazole 20 mg, Vitamin D2, Valsartan 320-25 mg, Nifedipine 60 mg, Metformin 1000 mg, Glipizide 10 mg, Aspirin 325 mg, Victoza 3 ml Patient History 47 yr. old male here for a modified split night sleep study in room 6. Patient complains of fragmented sleep, loud snoring, frequent arousals and EDS. Patient has a history of HTN and diabetes. Parameters Monitored NPSG: E1-M2, E2-M1, Fp1-M2, Fp2-M1, F3-M2, F4-M2, F4-M1, C3-M2, C4-M2, C4-M1, O1-M2, O2-M2, O2-M1, T3-M2, T4-M1, P3-M2, P4-M1, CHIN1, CHIN2, HR, EKG, Legs, PFLOW, SNOR, FLOW, CFLOW, Tidal Volume, THOR, ABDO, SpO2, PLTH, CPRESS, ETCO2 Wave, ETCO2, pH Sleep Architecture Sleep Stages Time at Lights Off 9:30:30 PM STAGES Time (min.) TST (%) Time at Lights On 5:40:30 AM Wake 290.5 -- Total Recording Time (TRT) 490.00 min. N1 25.5 13 Total Sleep Period (TSP) 432.5 min. N2 84.5 42 Total Sleep Time (TST) 199.5min. N3 65.0 33 Awake Time 290.5 min. REM 24.5 12 Wake after Sleep Onset 234.0 min. Sleep Efficiency (SE) 41 % Sleep Onset Latency (BONILLA) 56.5 min. Number of Stage 1 Shifts None Awakenings 25 Stage Changes 74 Number of REM periods 1 REM 24.5 12 REM Latency 358.5 min. NREM 175.0 88 Body Position Analysis Supine Right Left Side Prone Vertical Total Sleep Time (min.) 101.8 74.0 95.1 169.03 0.0 10.9 Total Sleep Time (%) 15% 37% 48% 85 0% N/A% Total Sleep Time REM (min.) 0.0 24.5 0.0 None 0.0 0.0 Total Sleep Time NREM (min.) 30.5 49.5 95.1 None 0.0 0.0 Intermittent Wake (min.) 71.3 80.6 126.8 None 0.0 10.9 Total Sleep Period (%) 23% None None None None None Arousals Myoclonus (PLM) * Events Count Index Events Count Index Spontaneous 3 1 Events Awake (PLMW) 475 98.1 Respiratory 5 2.4 Events Asleep w/ Arousal (PLMA) 19 5.7 PLM 16 6 Events Asleep w/o Arousal (PLMS) 87 26.2 Snoring 5 2 Total Asleep 106 31.9 Total 29 9 Total 581 71 Respiratory Analysis * CA OA MA CH H RERA Total Count 0 1 0 0 61 0 62 Index 0.0 0.3 0.0 0 18.3 0 18.6 Mean Duration 0.0 12.6 0.0 0.00 19.9 0.0 19.8 Longest Duration 0.0 12.6 0.0 0.00 0.0 0.0 43.4 Respiratory Event Summary Total Supine ~Supine Right Left Prone REM NREM Apneas Count 1 0 1 0 1 N/A 0 1 Index 0.3 0 0 0.0 0.6 N/A 0 0 Hypopneas (4% Desat) Count 61 23 38 32 6 N/A 23 38 Index 18.3 45.3 13 26.0 3.8 N/A 56.3 13.0 Apneas & All Hypopneas Count 62 23 39 32 7 N/A 23 39 Index 18.6 45 14 26 4 N/A 56.3 13.4 Respiratory Events (Optical Design Engineer+All Hyp+RERA) Count 62 23 39 32 7 N/A 23 39 Index 18.6 45 14 26.0 4.4 N/A 56.3 13.4 Respiratory Related Arousal Count 5 23 2 2 0 N/A 0 8 Index 2.4 12 1 2 0 N/A 0 3 Snoring Analysis Supine Right Left Prone REM NREM Total Snore duration 7.5 min Snores count 55 296 16 N/A 102 265 367 Snore mean duration 1.2 Sec Snores index 108 240 10 N/A 249.8 90.9 110.4 TST with snoring (%) 3.8% Desaturation Event Summary: Minimum %SpO2 Event Count Mean/Min/Max Duration(sec.) Desaturation Index % Time In Bed > 90 74 17.5 / 6.0 / 56.8 203.6 4.5 86 - 90 178 17.7 / 4.8 / 59.8 28.1 78.9 81 - 85 27 17.4 / 8.0 / 45.0 23.2 14.5 76 - 80 3 14.8 / 11.0 / 17.0 19.1 2.0 71 - 75 0 N/A 0.0 0.1 66 - 70 0 N/A 0.0 0.0 61 - 65 0 N/A 0.0 0.0 56 - 60 0 N/A 0.0 0.0 51 - 55 0 N/A 0.0 0.0 < 50 0 N/A 0.0 0.0 Total REM NREM Awake <50% 0.0 min. 0.0 min. 0.0 min. 0.0 min. 51 - 60% 0.0 min. 0.0 min. 0.0 min. 0.0 min. 61 - 70% 0.0 min. 0.0 min. 0.0 min. 0.0 min. 71 - 80% 9.7 min. 9.0 min. 0.4 min. 0.3 min. 81 - 90% 449.4 min. 15.5 min. 163.3 min. 270.7 min. 91 - 100% 21.8 min. 0.0 min. 11.4 min. 10.4 min. Average 87 82 88 87 Minimum SpO2 74 74 77 78 Desaturation Event Index 27.1 71.0 28.1 22.7 # Desat. Events below 89% 217 29 81 107 Time(%) with Saturation below 89% 74.4 5.0 22.4 47.1 Time(min.) with Saturation below 89% 358.0 23.9 107.7 226.4 Time (mins) REM (mins) NREM (mins) % of TST SpO2 Below 90% 111 29 N82 82.7 SpO2 Below 88% 32 0 0 50 Heart Rate Analysis Min (bpm) Max (bpm) Average (bpm) Awake 57 106 89 NREM 69 106 79 REM 74 98 86 Overall 69 106 80 Supplemental O2 Values Minimum O2 level: None Value Start Time End Time Shroudman Comments did not get into a steady sleep until 2:52 am, and therefore did not qualify for a split night study. Mr. Black slept in the right, left, and supine positions. No cardiac arrhythmia. PLMs noted. No bruxism noted. Snoring was noted and scored as a 3 on a scale of 0 through 5. (0=no snoring, 5=snoring loud enough to be heard through a closed door or down the [address] way) awoke to use the restroom once during the night, at that time he complained about the heat and overhead fan. stated, that was a bad night. The final report will be interpreted and signed by a sleep physician. The completed physician report will then be placed in the patient medical record. Therapy (cm H2O) 0 TIB (min.) 490.0 TST (min.) 199.5 Sleep Onset (min.) 56.5 REM Onset From Sleep (min.) 358.5 Sleep Efficiency % 41 Wakefulness (%) 59 Wakefulness (min.) 290.5 NREM 1 (%) 13 NREM 1 (min.) 25.5 NREM 2 (%) 42 NREM 2 (min.) 84.5 NREM 3 (%) 33 NREM 3 (min.) 65.0 REM (%) 12 REM (min.) 24.5 # Arousals 29 Arousal Index 9 # Snore 367 Snore Index 110.4 AHI 18.6 AHI Supine 45 AHI Non-Supine 14 NREM AHI 13.4 REM AHI 56.3 RDI 18.6 # Obstructive Apnea 1 # Central Apnea 0 # Mixed Apnea 0 # Hypopneas 61 RERAs 0 Total Respiratory Events 65 Time Below SpO2 89% (min.) 131.6 Mean NREM SpO2 (%) 88 Mean REM SpO2 (%) 82 Mean Sleep SpO2 (%) 87 Min NREM SpO2 (%) 77 Min REM SpO2 (%) 74 Position Supine (min.) 101.8 Position Non-supine (min.) 169.0 LM Index Sleep 31.9 LM Index NREM 34.3 LM Index REM 14.7 Mean Heart Rate (bpm) 80 Min Heart Rate (bpm) 69
--- NOTE | 2017-12-31 17:05 | POLYSOMNOGRAPH REPORT ---
CLINICAL DATA: A 47-year-old male with BMI of 36.[address] Cloud for fragmented sleep, loud snoring, frequent arousals and excessive daytime sleepiness. SLEEP ARCHITECTURE: Total sleep period was 432.5 minutes. Total sleep time was 199.5 minutes divided between 175 minutes of non-REM sleep and 24.5 minutes of REM sleep. Sleep onset latency was 56.5 minutes. REM latency was 358.5 minutes. Sleep efficiency was severely reduced at 41%. Wake after sleep onset was elevated at 234 minutes. Sleep consisted of stage N1 13%, stage N2 42%, stage N3 33%, and REM 12%. AROUSAL DATA: 29 arousals were recorded for an index of 9 per hour. PLM DATA: 106 limb movements during sleep were noted for an index of 31.9 per hour with arousal index of 5.7 per hour. RESPIRATORY DATA: Moderate sleep apnea was documented. The AHI was 18.6. There was 1 obstructive apneic episode, 12.6 seconds in duration. There were 61 hypopneic episodes, the mean duration of which was 19.9 seconds. OXIMETRY DATA: Nocturnal hypoxemia was seen. Oxygen stephanie was 74% during REM. Mean saturation was 87%. Time below 88% was 32 minutes. EKG: Heart rates ranged from 69-106 beats per minute. No arrhythmias were noted. [facility]RI[facility] C[facility] ASSISTANT'S COMMENTS: The patient did not get into steady sleep until almost 3:00 a.m.,and therefore did not qualify for a split night study. He slept in the right, left, and supine position. Snoring was moderate, rated 3 on a scale of 1-5. The patient stated that it was a very bad night. He complained about heat and the overhead fan. IMPRESSION: Moderate sleep apnea/hypopnea with an AHI of 18.6 with nocturnal hypoxemia. RECOMMENDATIONS: The patient may benefit from a repeat sleep study with CPAP with use of a sleeping medication on the night of the CPAP titration study or use of auto CPAP. Clinical correlation is needed. KATTY
== END | disposition home or self-care (01) ==
LOC: C.NEUR 21:00
PROVIDERS: ATTEND Internal Medicine Pulmonary Disease
DX: R51 Headache (principal); G47.36 Sleep related hypoventilation in conditions classified elsewhere; I10 Essential (primary) hypertension